=== PATIENT | female | born 1985 ===

== ENCOUNTER 2022-01-27 14:24 | Inpatient (IN) | payer BC ==
[~2022-01-27] VITALS: Ht 160 cm; Wt 127.3 kg
[2022-01-27] MEDS ORDERED: MAGNESIUM SULFATE 4% INJ 20GM/500ML (40MG/ML) As Ordered ONE (17:24)
[2022-01-27] MEDS ORDERED: TRANEXAMIC ACID INJection 1,000 MG in NS 100 ML IV PRN (19:35)
[2022-01-27] MEDS ORDERED: AZITHROMYCIN INJ 500 MG, VIAL MATE ADAPTER 1 EACH in NS 250 ML IV ONE (19:35)
[2022-01-27] MEDS ORDERED: LIDOCAINE 1% MDV 20ML VIAL INFIL PRN (19:35)
[2022-01-27] MEDS ORDERED: ceFAZolin SOD 3 GM IV Place Holder IV ONE (19:35)
[2022-01-27] MEDS ORDERED: BICITRA 30ML SOLN UDC PO ONE (19:35)
[2022-01-27] MEDS ORDERED: CARBOPROST TROMETHAMINE 250 MCG/ML AMP IM PRN (19:35)
[2022-01-27] MEDS ORDERED: LR 1,000 ML IV SCH (19:35)
[2022-01-27] MEDS ORDERED: ceFAZolin SOD 1 GM in D5W MINI-BAG PLUS 50 ML IV ONE (19:40)
[2022-01-27] MEDS ORDERED: ceFAZolin SOD 2 GM in IV 1 EA IV ONE (19:40)
[2022-01-27] MEDS ORDERED: OXYTOCIN INJ 10 UNITS/ML VIAL (J2590) As Ordered ONE (20:32)
[2022-01-27] MEDS ORDERED: ONDANSETRON 4MG 2ML VIAL As Ordered ONE (20:32)
[2022-01-27] MEDS ORDERED: dexameTHASONE 4 MG/ML 1ML VIAL (J1100 PER 1MG) As Ordered ONE (20:32)
[2022-01-27] MEDS ORDERED: MORPHINE PRES-FREE INJ 10 MG/10 ML VIAL As Ordered ONE (20:32)
[2022-01-27] MEDS ORDERED: OXYTOCIN 30 UNITS IN 0.9% NaCl 500ML IV BAG (J2590) As Ordered ONE (20:33)
[2022-01-27] MEDS ORDERED: PHENYLephrine 500MCG 5ML (100MCG/ML) SYRINGE As Ordered ONE (21:13)
[2022-01-27] MEDS ORDERED: ePHEDrine SULFATE 25 MG/5 ML(5MG/ML) SYRINGE As Ordered ONE (21:13)
[2022-01-27] MEDS ORDERED: OXYTOCIN DRIP 30 UNITS in IV 1 EA IV SCH (22:50)
[2022-01-27] MEDS ORDERED: RHOGAM 300 MCG (1500 IU) INJ (J2790) IM SCH (22:50)
[2022-01-27] MEDS ORDERED: CALCIUM GLUCONATE 1,000 MG in D5W MINI-BAG PLUS 100 ML IV PRN (22:50)
[2022-01-27] MEDS ORDERED: SIMETHICONE 80MG CHEW TAB PO PRN (22:50)
[2022-01-27] MEDS ORDERED: MORPHINE 2 MG/ML 1ML VIAL IV PRN (22:50)
[2022-01-27] MEDS ORDERED: ONDANSETRON 4MG 2ML VIAL IV PRN (22:50)
[2022-01-27] MEDS ORDERED: PERCOCET 5MG/325MG TAB PO PRN ×2 (22:50)
[2022-01-27] MEDS ORDERED: LABETALOL 100MG/20ML VIAL IV ONE (23:15)
[2022-01-28] VITALS (21 sets, daily range): BP systolic 107–146; BP diastolic 53–92
[2022-01-28] MEDS: MAG Sulf (OBGYN) 20GM/500ML 20,000 MG in IV 1 EA IV SCH ×2 (00:20→07:36)
[2022-01-28] MEDS: KETOROLAC 30 MG/ML 1ML VIAL IV SCH ×4 (00:29→18:29)
[2022-01-28 07:07] LABS: HEMATOCRIT 33.6 % (36.0-47.0); HEMOGLOBIN 11.3 g/dl (12.0-15.5); MEAN CORPUSCULAR HEMOGLOBIN 30.2 pg (27.0-33.0); MEAN CORPUSCULAR HGB CONC 33.6 g/dl (32.0-36.5); MEAN CORPUSCULAR VOLUME 89.8 fl (80.0-96.0); PLATELET COUNT, AUTOMATED 231 10^3/uL (150-450); RED BLOOD COUNT 3.74 10^6/uL (4.00-5.40); WHITE BLOOD COUNT 15.3 10^3/uL (4.0-10.0)
[2022-01-28] MEDS ORDERED: SLF 3 ML SYR IV PRN (08:15)
[2022-01-28] MEDS: DOCUSATE SODIUM 100MG CAPSULE PO SCH ×2 (08:39→21:00)
[2022-01-28] MEDS: PRENATAL VITAMINS CHEWABLE TABLET PO SCH (08:39)
[2022-01-28] MEDS: LR 1,000 ML IV SCH ×2 (11:10→19:00)
[2022-01-28 11:18] LABS: HEMATOCRIT 33.6 % (36.0-47.0); HEMOGLOBIN 11.4 g/dl (12.0-15.5); MEAN CORPUSCULAR HEMOGLOBIN 30.6 pg (27.0-33.0); MEAN CORPUSCULAR HGB CONC 33.9 g/dl (32.0-36.5); MEAN CORPUSCULAR VOLUME 90.1 fl (80.0-96.0); PLATELET COUNT, AUTOMATED 253 10^3/uL (150-450); RED BLOOD COUNT 3.73 10^6/uL (4.00-5.40); WHITE BLOOD COUNT 16.6 10^3/uL (4.0-10.0)
[2022-01-28] MEDS: ENOXAPARIN 40MG/0.4ML SYRINGE (J1650 PER 10MG) SC SCH (11:46)
[2022-01-28 11:51] LABS: ALBUMIN 2.1 GM/DL (3.2-5.2); ALT/SGPT 69 U/L (12-78); BILIRUBIN,TOTAL 0.5 MG/DL (0.2-1.0); BLOOD UREA NITROGEN 16 MG/DL (7-18); CALCIUM LEVEL 8.2 MG/DL (8.5-10.1); CARBON DIOXIDE LEVEL 23 MEQ/L (21-32); CHLORIDE LEVEL 101 MEQ/L (98-107); CREATININE FOR GFR 0.76 MG/DL (0.55-1.30); GLOMERULAR FILTRATION RATE > 60.0 (>60); GLUCOSE, FASTING 107 MG/DL (70-100); LDH LACTATE DEHYDROGENASE 240 U/L (84-246); POTASSIUM SERUM 4.5 MEQ/L (3.5-5.1); SODIUM LEVEL 132 MEQ/L (136-145); TOTAL PROTEIN 5.4 GM/DL (6.4-8.2); URIC ACID 7.7 MG/DL (2.6-6.0)
[2022-01-28] MEDS ORDERED: LR 1,000 ML IV ONE (13:40)
[2022-01-28] MEDS: SLF 3 ML SYR IV SCH ×2 (15:37→22:00)
[2022-01-28] MEDS ORDERED: SLOWTAB2 PO (16:44)
[2022-01-28] MEDS ORDERED: ASPI81CH33 PO (16:44)
[2022-01-28] MEDS ORDERED: BUDE10.2 IH (16:44)
[2022-01-28] MEDS: SYMBICORT 160/4.5MCG INHALER 6GM INH SCH (19:42)
[2022-01-29 02:00] VITALS: BP 138/73
[2022-01-29] MEDS: LR 1,000 ML IV SCH ×2 (03:00→11:00)
[2022-01-29 06:00] VITALS: BP 137/81
[2022-01-29] MEDS: IBUPROFEN 800 MG TAB PO SCH ×3 (06:00→21:01)
[2022-01-29] MEDS: SYMBICORT 160/4.5MCG INHALER 6GM INH SCH ×2 (07:59→20:00)
[2022-01-29] MEDS: DOCUSATE SODIUM 100MG CAPSULE PO SCH ×2 (08:31→21:01)
[2022-01-29] MEDS: PRENATAL VITAMINS CHEWABLE TABLET PO SCH (08:31)
[2022-01-29] MEDS: ENOXAPARIN 40MG/0.4ML SYRINGE (J1650 PER 10MG) SC SCH (08:32)
[2022-01-29] MEDS ORDERED: MEASLES,MUMPS,RUBELLA VACCINE INJ (MMR-II) (90707) SC.IMMUN ONE (09:00)
[2022-01-29 10:00] VITALS: BP 135/82
[2022-01-29] MEDS: SLF 3 ML SYR IV SCH ×3 (11:36→21:02)
[2022-01-29 14:00] VITALS: BP 144/98
[2022-01-29 18:00] VITALS: BP 148/92
[2022-01-29 22:00] VITALS: BP 141/86
[2022-01-30] VITALS (8 sets, daily range): BP systolic 143–167; BP diastolic 85–100
[2022-01-30] MEDS: IBUPROFEN 800 MG TAB PO SCH ×2 (06:28→13:45)
[2022-01-30] MEDS: SLF 3 ML SYR IV SCH ×2 (06:29→14:00)
[2022-01-30] MEDS: SYMBICORT 160/4.5MCG INHALER 6GM INH SCH (08:00)
[2022-01-30] MEDS: PRENATAL VITAMINS CHEWABLE TABLET PO SCH (08:45)
[2022-01-30] MEDS: DOCUSATE SODIUM 100MG CAPSULE PO SCH (08:45)
[2022-01-30] MEDS: ENOXAPARIN 40MG/0.4ML SYRINGE (J1650 PER 10MG) SC SCH (08:45)
[2022-01-30] MEDS ORDERED: NIFEdipine 10 MG CAP PO ONE (10:40)
[2022-01-30] MEDS ORDERED: NIFE1TAB52 PO (17:14)
[2022-01-30] MEDS ORDERED: IBUP80TA PO (17:14)
[2022-01-30] MEDS ORDERED: OXYC1TAB23 PO (17:15)
== END 2022-01-30 17:55 | disposition home or self-care (01) | DRG 540 ==
LOC: M LDI 17:21 → M OBS 01-28 15:35
PROVIDERS: ADMIT Obstetrics & Gynecology; ATTEND Obstetrics & Gynecology
PROC: 0UT70ZZ Resection of Bilateral Fallopian Tubes, Open Approach (ICD-10-PCS; 2022-01-27)
PROC: 10D00Z1 Extraction of Products of Conception, Low, Open Approach (ICD-10-PCS; principal; 2022-01-27 21:00)
DX: O14.14 Severe pre-eclampsia complicating childbirth (principal); E66.9 Obesity, unspecified; O24.420 Gestational diabetes mellitus in childbirth, diet controlled; O99.214 Obesity complicating childbirth; Z3A.35 35 weeks gestation of pregnancy; O34.211 Maternal care for low transverse scar from previous cesarean delivery; O32.2XX0 Maternal care for transverse and oblique lie, not applicable or unspecified; Z37.0 Single live birth; Z30.2 Encounter for sterilization